=== PATIENT | male | born 1945 | race Caucasian/White ===

== ENCOUNTER 2020-09-26 05:39 | Day surgery (SDC) | payer MEDICARE, OTHER ==
[2020-09-23 14:08] LABS: COVID AG,FIA SOURCE NASOPHARYNGEAL
[~2020-09-26] VITALS: Ht 157.5 cm; Wt 85.0 kg
[2020-09-26] MEDS ORDERED: LIDOCAINE 4% 50 ML SOLUTION TP ONE (05:40)
[2020-09-26] MEDS ORDERED: BENZOCAINE 20% 50 MCG/SPRAY 57 GM TP ONE (05:40)
[2020-09-26] MEDS ORDERED: ALBUTEROL SULFATE 2.5 MG/0.5 ML NEB SOLUTION NEB ONE (05:40)
[2020-09-26] MEDS ORDERED: LIDOCAINE 2% 30 ML JELLY TP ONE (05:40)
[2020-09-26] MEDS ORDERED: SODIUM CHLORIDE 0.9% 1,000 ML ONE (06:07)
[2020-09-26] MEDS ORDERED: SODIUM CHLORIDE 0.9% 1,000 ML IV ONE (06:30)
[2020-09-26] MEDS ORDERED: FLUT16H NASAL (07:24)
[2020-09-26] MEDS ORDERED: METO-391 PO (07:24)
[2020-09-26] MEDS ORDERED: ALBU8HFA IH (07:24)
[2020-09-26] MEDS ORDERED: AZEL137S8 NASAL (07:24)
[2020-09-26] MEDS ORDERED: OMEP40CA21 PO (07:24)
[2020-09-26] MEDS ORDERED: ASPI-1444 PO (07:24)
[2020-09-26] MEDS ORDERED: FAMO20 PO (07:24)
[2020-09-26] MEDS ORDERED: ATOR20TA65 PO (07:24)
[2020-09-26] MEDS ORDERED: HYDR25TA PO (07:24)
[2020-09-26] MEDS ORDERED: ACYC400T20 PO (07:24)
[2020-09-26] MEDS ORDERED: MONT10TA32 PO (07:24)
[2020-09-26] MEDS ORDERED: FentaNYL CITRATE PF 100 MCG/2 ML VIAL ONE (07:40)
[2020-09-26] MEDS ORDERED: MIDAZOLAM HCL 5 MG/ML VIAL ONE (07:41)
[2020-09-26] MEDS ORDERED: MethylPREDNISolone SOD SUCC 125 MG/2 ML VIAL IVP ONE (09:00)
[2020-09-26] MEDS ORDERED: MethylPREDNISolone SOD SUCC 125 MG/2 ML VIAL ONE (09:01)
[2020-09-26] MEDS ORDERED: OXYGEN THERAPY IH SCH (20:00)
== END 2020-09-26 10:20 | disposition home or self-care (01) ==
LOC: SURGERY 05:39
PROVIDERS: ATTEND Internal Medicine Critical Care Medicine
DX: J38.4 Edema of larynx (principal); B37.0 Candidal stomatitis; Z98.890 Other specified postprocedural states; I10 Essential (primary) hypertension; E78.00 Pure hypercholesterolemia, unspecified; Z79.899 Other long term (current) drug therapy
CPT/HCPCS: 31623; 31624; 71045; 87015; 87070; 87077; 87101; 87186; 87205; 87206; 87220; 87426; 88108; 88184; 88185; 88312; C9803; J2250; J2930; J3010; J7030; J7613; Z7610

== ENCOUNTER 2023-08-19 06:49 | Day surgery (SDC) | payer MEDICARE, OTHER ==
[~2023-08-19 06:49] MED LIST: ACYC400T20 PO; ALBU18HF12 IH; AMLO2.5T29 PO; ASCO500T20 PO; ASPI-1444 PO; ATOR20TA65 PO; AZEL137S8 NASAL; CHOL500045 PO; DORZ10DR10 OU; FAMO20 PO; FLUT1BLS15 IH; HYDR25TA PO; LOSA-381 PO; METF-81 PO; METO-391 PO; MONT-40 PO; OMEP40CA21 PO; PROP10DR4 OU; SODIUM CHLORIDE 0.9% 1,000 ML ONE; [UNRECOGNIZED DRUG - CODE] PO
[2023-08-19] MEDS ORDERED: MIDAZOLAM HCL 2 MG/2 ML VIAL ONE (08:04)
[2023-08-19] MEDS ORDERED: FentaNYL CITRATE PF 100 MCG/2 ML VIAL ONE (08:05)
[2023-08-19 08:41] LABS: GLUCOMETER DEV NAME(LOC) SDS.; GLUCOSE,POINT OF CARE 111 MG/DL (70-110)
[2023-08-19 09:35] VITALS: PULSE 73; RESP 22; O2SAT 96
[2023-08-19] MEDS ORDERED: MethylPREDNISolone SOD SUCC 125 MG/2 ML VIAL ONE (10:26)
[2023-08-19] MEDS: SODIUM CHLORIDE 0.9% 1,000 ML IV ONE (10:31)
[2023-08-19] MEDS: MethylPREDNISolone SOD SUCC 125 MG/2 ML VIAL IVP ONE (10:31)
== END 2023-08-19 15:05 | disposition home or self-care (01) ==
LOC: SURGERY 06:49
PROVIDERS: ATTEND Internal Medicine Critical Care Medicine
DX: R05.3 Chronic cough (principal); J84.10 Pulmonary fibrosis, unspecified; J98.8 Other specified respiratory disorders; J98.09 Other diseases of bronchus, not elsewhere classified; J98.11 Atelectasis; I70.0 Atherosclerosis of aorta; R07.9 Chest pain, unspecified; I10 Essential (primary) hypertension; J45.909 Unspecified asthma, uncomplicated; E11.9 Type 2 diabetes mellitus without complications; E04.1 Nontoxic single thyroid nodule; Z85.21 Personal history of malignant neoplasm of larynx; Z87.891 Personal history of nicotine dependence
CPT/HCPCS: 31623; 82962; 87206; 87101; 87220; 87070; 31624; 94640; 71045; 71250; 87015; J3010; J2250; J2919; J7030; 88108